=== PATIENT | female | born 1950 | race Caucasian/White ===

== ENCOUNTER 2017-03-09 07:51 | Day surgery (SDC) | payer MEDICARE ==
--- NOTE | 2017-03-09 06:47 | History and Physical Report ---
DATE: 03/09/2017. CHIEF COMPLAINT: This patient presents with a history of an intractable thoracic and lumbar radiculitis. Diagnostics show diffuse and multilevel spondylosis with multiple compression fractures from T6 through T12. HISTORY OF PRESENT ILLNESS: Multiple attempts at kyphoplasty with yielded minimal results. Due to the failure of all therapies, the patient presents today for an implanted spinal catheter infusion trial with hydromorphone to determine if the implantation of a permanent system can be of any value in pain control. PAST MEDICAL HISTORY: Hypertension, peripheral neuropathy, reflux esophagitis. PAST SURGICAL HISTORY: To be provided. MEDICATIONS ON ADMISSION: To be provided. ALLERGIES: None. SOCIAL HISTORY: Caffeine. FAMILY HISTORY: Coronary artery disease, hypertension. REVIEW OF SYSTEMS: The patient is appropriate and in no acute distress. The remainder of the systems review shows headaches, degenerative arthritis, depression, and difficulty sleeping. PHYSICAL EXAMINATION: General: Height and weight are not unknown. Vital Signs: Unavailable. HEENT: Within normal limits. Lungs: Clear. Heart: Regular rate and rhythm. Abdomen: Nontender. Musculoskeletal: Examination of the musculoskeletal system shows diffuse tenderness throughout the thoracic and lumbar spine. Range of motion produces pain moving into the rib margins as well as into the lower extremities, somewhat more right than left. Ambulation: Assistive device utilized. Neurologic: Cranial nerves are intact. IMPRESSION: THORACIC AND LUMBAR RADICULITIS, ICD-10 CODE M54.14, M54.16, AND M54.17. PLAN: The patient is here for an implanted spinal catheter infusion trial with hydromorphone to determine if the implantation of a permanent system can be of any value in pain control. An incision will be made and the catheter will be implanted into the supraspinous fascia and into the spinal space. The potential risks of spinal cord trauma, nerve root trauma, and spinal headache have been discussed and reviewed. An epidural blood patch will be performed in an attempt to provide a prophylaxis against the headache. All of the information from the loading machine adjuster has been provided. This carefully reviews all of the risks, side effects, and complications including those already identified above. The patient will be evaluated for a possible overnight stay, although discharge the same day could be considered. SUSY CORBETT D.O. Date & Time JOB NUMBER: [id number] cc: Luis Rojo
[~2017-03-09 07:51] MED LIST: ACETAMINOPHEN 1,000 MG/100 ML BTL IV ONE; CEFAZOLIN 2 Gram 2 GM/50 ML BAG IVPB ONE; FAMOTIDINE 20MG TABLET PO ONE; HYDROMORPHONE PF 2MG/ML AMP 0.004 MG in 0.9 % SODIUM CHLORIDE 10ML VIA 0.998 ML IV ONE; HYDROMORPHONE PF 2MG/ML AMP 2 MG in 0.9 % SODIUM CHLORIDE 500ML 499 ML IV ONE; MECLIZINE 25 MG TABLET PO ONE; METOCLOPRAMIDE 10 MG TABLET PO ONE
[2017-03-09] MEDS ORDERED: TEMAZEPAM 15 MG CAPSULE PO PRN ×2 (10:45)
[2017-03-09] MEDS ORDERED: HYDROCODONE/APAP 7.5/325MG TABLET PO PRN ×2 (10:45)
[2017-03-09] MEDS ORDERED: METOCLOPRAMIDE 10 MG TABLET PO PRN (10:45)
[2017-03-09] MEDS ORDERED: DIPHENHYDRAMINE HCL IV 50 MG/ML VIAL IVP PRN ×2 (10:45)
[2017-03-09] MEDS ORDERED: OXYCODONE/APAP 10MG-325MG TABLET PO PRN ×2 (10:45)
[2017-03-09] MEDS ORDERED: HYDROMORPHONE HCL 1 MG/ML CPJ IM PRN (10:45)
[2017-03-09] MEDS ORDERED: NALOXONE 0.4 MG/1 ML VIAL IVP PRN (10:45)
[2017-03-09] MEDS ORDERED: DIPHENHYDRAMINE HCL 25 MG CAPSULE PO PRN ×2 (10:45)
[2017-03-09] MEDS ORDERED: ACETAMINOPHEN 325 MG TAB PO PRN ×2 (10:45)
[2017-03-09] MEDS ORDERED: METOCLOPRAMIDE HCL 10 MG/2 ML VIAL IVP PRN (10:45)
[2017-03-09] MEDS ORDERED: SENNOSIDES/DOCUSATE SODIUM UD CAPSULE PO PRN ×2 (10:45)
[2017-03-09] MEDS ORDERED: RINGERS SOLUTION,LACTATED 1,000 ML IV SCH (10:45)
[2017-03-09] MEDS ORDERED: HYDROMORPHONE HCL 2 MG/ML VIAL IM PRN (10:45)
[2017-03-09] MEDS ORDERED: AL HYDROX/MAG HYDROX 30ML UD PO PRN (10:45)
[2017-03-09] MEDS ORDERED: RINGERS SOLUTION,LACTATED 1,000 ML IV PRN (12:03)
[2017-03-09] MEDS ORDERED: LIDOCAINE 1% W/EPI 1:200,000 MPF 30ML SQ ONE (15:07)
[2017-03-09] MEDS ORDERED: CEFAZOLIN 1G VIAL IM ONE (15:07)
[2017-03-09] MEDS ORDERED: BUPIVACAINE 0.5% W/EPI MPF 30 ML VIAL IVP ONE (15:07)
--- NOTE | 2017-03-09 15:41 | Operative Note - Ferro ---
DATE OF SURGERY: 03/09/17 PREOPERATIVE DIAGNOSES: THORACIC AND LUMBAR RADICULITIS, ICD-10 CODE = M54.14, M54.16, AND M54.17. OPERATION: 1. FLUOROSCOPICALLY-GUIDED ACCESS SPINAL SPACE AT L3/4. PLACEMENT OF THIN- WALLED SPINAL CATHETER T8. 2. DIAGNOSTIC MYELOGRAPHY WITH RADIOLOGIC SUPERVISION AND INTERPRETATION. 3. SPINAL OPIOID BOLUS HYDROMORPHONE 0.002 MG, SPINAL SPACE. 4. INCISION, SUBCUTANEOUS DISSECTION, AND ANCHORING OF SPINAL CATHETER TO SUPRASPINOUS FASCIA USING ANCHORING DEVICE AND NONABSORBABLE SUTURE. 5. INCISION, SUBCUTANEOUS DISSECTION, AND CREATION OF SUBCUTANEOUS POUCH AT LEFT POSTERIOR/SUPERIOR GLUTEAL MARGIN. 6. TUNNELING BETWEEN POUCHES, PLACEMENT OF EXTERNAL PORTION OF SPINAL CATHETER INTO POSTERIOR POUCH. CATHETER REVISED AND RESECTED WITH SECONDARY CATHETER COMPONENT BY WAY OF CONNECTOR. 7. TUNNELING OF SECONDARY CATHETER COMPONENT 6 CM SUPERIOR EXITING SKIN. 8. INTERFACE EXTERNAL CATHETER TO THE INFUSION PUMP SET TO DELIVER HYDROMORPHONE AT 0.04 MG A DAY. 9. CLOSURE OF MIDLINE INCISION, VICRYL FOR FASCIA AND RUNNING SUBCUTICULAR VICRYL FOR SKIN. CLOSURE OF LEFT POSTERIOR GLUTEAL MARGIN POUCH NYLON SUTURE. APPROPRIATE DRESSINGS PLACED COVERING CATHETER AND INCISIONS ALL UNDER STERILE DRESSING. 10. EPIDURAL BLOOD PATCH AT L4/5, 20 mL AUTOLOGOUS BLOOD DRAWN STERILE TECHNIQUE , LEFT ANTECUBITAL. DRESSINGS REINFORCED. PUMP CONFIRMED PROGRAM 0.04 MG A DAY. SURGEON: SUSY CORBETT D.O. ANESTHESIA: LOCAL SEDATION. ANESTHESIA PROVIDER: GLENYS SNIDER CRNA INDICATION: This patient presents with a history of intractable thoracic and lumbar radiculitis. Due to multiple compression fractures throughout the thoracic and lumbar spine, perhaps six in number. Due to the failure of all therapies, she is here for a spinal opioid infusion trial to determine if the implantation of a permanent system can be of any value in pain control. PROCEDURE: Intravenous line, vital sign monitoring, IV sedation. Prepped and draped sterile technique. Patient position prone. The spinal interspace at L3/4 was marked, skin infiltrated. Using a 15-gauge beveled with a long access in a paramedian approach, the spinal space was accessed. Access performed under AP and lateral imaging for safety. There were no paresthesias or pain on the part of the patient. A spinal catheter was advanced, positioned midline at T8. Diagnostic myelography is performed the resulting flow characteristics show smooth linear into the space. There were no kinks or obstructions noted. The skin above and below the needle infiltrated, incision made, and subcutaneous dissection was conducted to the supraspinous fascia. The needle was removed and the catheter was anchored to the supraspinous fascia with an anchoring device and nonabsorbable suture. At the left posterior gluteal margin, ultimately the site for the pump, skin infiltrated, incision made, and subcutaneous dissection was conducted to form a small pouch. A tunneling tool was then used to carry the spinal catheter into the posterior gluteal pouch. This catheter was then interfaced with the second catheter component by way of connector. The second catheter component was then tunneled superior exiting the skin 6 cm. The externalized catheter was then interfaced to an external infusion device, which was set to deliver Hydromorphone at 0.04 mg a day. The midline spinal catheter incision was closed Vicryl for fascia, running subcuticular Vicryl for skin. The posterior gluteal pouch was closed with nylon suture. At L4/5, which was one level below the dural puncture, skin infiltrated, and then an 18-gauge Tuohy needle with [id number] into the epidural space. Simultaneously, 20 mL of autologous blood drawn sterile technique from the left antecubital. This blood maintaining sterility was placed onto the field then the epidural blood patch was performed at this level with this blood. Needle removed. The dressings were reinforced. She was then transported to the Recovery Room stable , supine, pillow under head and knees. The infusion device at 0.04 mg a day. She was stable showing no side-effects from the procedure or the sedation. She will be kept flat for four hours, slowly elevated for one, and if stable considered dischargeable. Otherwise, she will be kept overnight for observation. DISCHARGE INSTRUCTIONS: 1. The sites will remain clean and dry. No showering or bathing in any way that would disrupt dressings. If it happens, contact the clinic. 2. Standard medications resumed including Levaquin, the antibiotic, 500 mg once a day for 14 days. 3. Spinal opioid side-effects including respiratory depression, nausea, vomiting , constipation, urinary retention, light headedness or rash have all been discussed and reviewed. All other instructions provided, numbers to contact, and problems given. She will then be evaluated in the office in 3-5 days for either an increase or redressing or reinforcing the dressings. cc: Dr. Medina JOB NUMBER:[id number] MTDD
[2017-03-09] MEDS ORDERED: MIDAZOLAM HCL 2MG/2ML VIAL IV ONE (15:46)
[2017-03-09] MEDS ORDERED: LIDOCAINE 2% MDV (20MG/ML) 20ML VIAL IV ONE (15:46)
[2017-03-09] MEDS ORDERED: PROPOFOL 10 MG/ML VIAL IV ONE (15:46)
[2017-03-09] MEDS ORDERED: FENTANYL PF 100MCG/2ML VIAL IV ONE (15:46)
[2017-03-09] MEDS ORDERED: CEFAZOLIN 2 Gram 2 GM/50 ML BAG IVPB SCH (17:20)
[2017-03-09] MEDS ORDERED: GABAPENTIN 300 MG CAPSULE PO SCH (22:00)
[2017-03-09] MEDS ORDERED: CITALOPRAM 20 MG TABLET PO SCH (22:00)
[2017-03-09] MEDS ORDERED: TRAZODONE 50 MG TABLET PO SCH (22:00)
[2017-03-10] MEDS ORDERED: METOPROLOL SUCC 25 MG TAB.ER PO SCH (10:00)
--- NOTE | 2017-03-10 10:52 | RADIOLOGY REPORT ---
EXAM: THORACOLUMBAR SPINE, ONE VIEW HISTORY: PAIN PUMP TRIAL. TECHNIQUE: A single AP view of the thoracic and upper lumbar portions of the spine were obtained. Comparison: None. FINDINGS: Post median sternotomy changes are identified. Bone cement is noted within a mid thoracic vertebral body which is compressed. There are degenerative changes scattered throughout the spine. An intraspinal catheter is in place. It is difficult to determine the level of entrance into the spinal canal. The tip of the intraspinal catheter is not well visualized though a radiopaque tip may be present at the inferior T8 level. Post surgical changes are noted in the left upper quadrant. IMPRESSION: INTRASPINAL CATHETER IN PLACE, DISCUSSED ABOVE. JOB NUMBER: [id number] MTDD
== END 2017-03-09 15:40 | disposition home or self-care (01) ==
LOC: SUR 07:51 → MEDSURG 11:23 → SUR 15:40
PROVIDERS: ATTEND Pain Medicine Interventional Pain Medicine
DX: M54.14 Radiculopathy, thoracic region (principal); M54.16 Radiculopathy, lumbar region; M54.17 Radiculopathy, lumbosacral region; I10 Essential (primary) hypertension
CPT/HCPCS: 62350; 00630; 72020; Q9967; J3010; J0690; J1170; J7040

== ENCOUNTER 2017-05-25 10:48 | Day surgery (SDC) | payer MEDICARE ==
--- NOTE | 2017-05-25 06:35 | History and Physical Report ---
DATE: 05/24/2017. CHIEF COMPLAINT AND HISTORY OF CHIEF COMPLAINT: This patient had a successful implanted spinal catheter infusion trial on March 09, 2017, with hydromorphone resulting in 75 to 80 percent pain control. At the conclusion of the trial, she fell and fractured her hip and had a hip replacement. Due to the failure of all other therapies, and after appropriate clearance from Orthopedics, she is here for implantation of a permanent system. PAST MEDICAL HISTORY: Peripheral neuropathy, hypertension, reflux, degenerative arthritis, depression, difficulty sleeping. SOCIAL HISTORY: Caffeine. FAMILY HISTORY: Coronary disease, hypertension. PAST SURGICAL HISTORY: Hip replacement. EMPLOYMENT STATUS: Retired. MEDICATIONS ON ADMISSION: To be provided. ALLERGIES: None. PHYSICAL EXAMINATION: General: Height and weight are not known. Vital Signs: Unavailable. HEENT: Within normal limits. Lungs: Clear. Heart: Regular rate and rhythm. Abdomen: Nontender. Musculoskeletal: Examination of the musculoskeletal system shows diffuse tenderness throughout the lumbar spine. Range of motion causes pain toward both hips and both legs. Ambulation: No assistive device utilized. Neurologic: Cranial nerves are intact. IMPRESSION: LUMBAR RADICULITIS, ICD-10 CODE M54.16 AND M54.17. PLAN: The patient is here for an implanted spinal infusion system with hydromorphone after a successful trial. The hip surgery delayed the procedure, but the patient is doing well and has passed all of the appropriate clearances. The procedure is scheduled for an overnight stay. An epidural blood patch will be performed as a prophylactic measure to prevent headaches. The potential risks, side effects, and complications have been carefully reviewed and discussed including spinal cord injury, paralysis, nerve root injury, dural puncture, and spinal headache. All of the appropriate information has been reviewed and discussed with the patient in detail. She has no questions and understands. SUSY CORBETT D.O. Date & Time JOB NUMBER: [id number] cc: Luis Rojo
[~2017-05-25 10:48] MED LIST changes: +HYDROMORPHONE HCL 0.008 GM in 0.9 % SODIUM CHLORIDE 10ML VIA 20 ML IV ONE; +HYDROMORPHONE HCL 0.016 GM in 0.9 % SODIUM CHLORIDE 10ML VIA 20 ML IV ONE; +HYDROMORPHONE HCL/PF 0.002 MG in 0.9 % SODIUM CHLORIDE 10ML VIA 0.998 ML IVP ONE; -HYDROMORPHONE PF 2MG/ML AMP 0.004 MG in 0.9 % SODIUM CHLORIDE 10ML VIA 0.998 ML IV ONE; -HYDROMORPHONE PF 2MG/ML AMP 2 MG in 0.9 % SODIUM CHLORIDE 500ML 499 ML IV ONE
[2017-05-25] MEDS ORDERED: TEMAZEPAM 15 MG CAPSULE PO PRN ×2 (14:03)
[2017-05-25] MEDS ORDERED: HYDROMORPHONE HCL 2 MG/ML VIAL IM PRN (14:03)
[2017-05-25] MEDS ORDERED: NALOXONE 0.4 MG/1 ML VIAL IVP PRN (14:03)
[2017-05-25] MEDS ORDERED: DIPHENHYDRAMINE HCL IV 50 MG/ML VIAL IVP PRN ×2 (14:03)
[2017-05-25] MEDS ORDERED: ACETAMINOPHEN 325 MG TAB PO PRN ×2 (14:03)
[2017-05-25] MEDS ORDERED: METOCLOPRAMIDE HCL 10 MG/2 ML VIAL IVP PRN (14:03)
[2017-05-25] MEDS ORDERED: AL HYDROX/MAG HYDROX 30ML UD PO PRN (14:03)
[2017-05-25] MEDS ORDERED: HYDROMORPHONE HCL 1 MG/ML CPJ IM PRN (14:03)
[2017-05-25] MEDS ORDERED: DIPHENHYDRAMINE HCL 25 MG CAPSULE PO PRN ×2 (14:03)
[2017-05-25] MEDS ORDERED: SENNOSIDES/DOCUSATE SODIUM UD CAPSULE PO PRN ×2 (14:03)
[2017-05-25] MEDS ORDERED: HYDROCODONE/APAP 7.5/325MG TABLET PO PRN ×2 (14:03)
[2017-05-25] MEDS ORDERED: METOCLOPRAMIDE 10 MG TABLET PO PRN (14:03)
[2017-05-25] MEDS ORDERED: RINGERS SOLUTION,LACTATED 1,000 ML IV SCH (14:03)
[2017-05-25] MEDS ORDERED: OXYCODONE/APAP 10MG-325MG TABLET PO PRN (14:03)
[2017-05-25] MEDS ORDERED: LIDOCAINE 1% W/EPI 1:200,000 MPF 30ML SQ ONE (15:00)
[2017-05-25] MEDS ORDERED: CEFAZOLIN 1G VIAL IM ONE (15:00)
[2017-05-25] MEDS ORDERED: BUPIVACAINE 0.5% W/EPI MPF 30 ML VIAL IVP ONE (15:00)
[2017-05-25] MEDS ORDERED: FENTANYL PF 100MCG/2ML VIAL IV ONE (16:18)
[2017-05-25] MEDS ORDERED: LIDOCAINE 2% MDV (20MG/ML) 20ML VIAL IV ONE (16:18)
[2017-05-25] MEDS ORDERED: PROPOFOL 10 MG/ML VIAL IV ONE (16:18)
[2017-05-25] MEDS ORDERED: MIDAZOLAM HCL 2MG/2ML VIAL IV ONE (16:18)
[2017-05-25] MEDS ORDERED: HYDROMORPHONE HCL 2 MG/ML VIAL IV ONE (16:18)
[2017-05-25] MEDS: OXYCODONE/APAP 10MG-325MG TABLET PO PRN ×2 (16:29→20:21)
[2017-05-25] MEDS: CEFAZOLIN 2 Gram 2 GM/50 ML BAG IVPB SCH (20:06)
[2017-05-25] MEDS ORDERED: TRAZODONE 50 MG TABLET PO SCH (22:00)
[2017-05-25] MEDS ORDERED: MIRTAZAPINE 15 MG TABLET PO SCH (22:00)
[2017-05-25] MEDS ORDERED: GABAPENTIN 300 MG CAPSULE PO SCH (22:00)
[2017-05-25] MEDS ORDERED: CITALOPRAM 20 MG TABLET PO SCH (22:00)
[2017-05-26] MEDS: OXYCODONE/APAP 10MG-325MG TABLET PO PRN ×2 (00:55→06:59)
[2017-05-26] MEDS: CEFAZOLIN 2 Gram 2 GM/50 ML BAG IVPB SCH (03:27)
[2017-05-26] MEDS ORDERED: METFORMIN 500 MG TABLET PO SCH (08:00)
[2017-05-26] MEDS ORDERED: METOPROLOL SUCC 25 MG TAB.ER PO SCH (10:00)
--- NOTE | 2017-05-26 16:24 | Operative Note - Ferro ---
DATE OF SURGERY: 05/25/17 PREOPERATIVE DIAGNOSIS: INTRACTABLE LUMBAR RADICULITIS, ICD-10 CODE = M54.16 AND M54.17. OPERATION: 1. FLUOROSCOPICALLY-GUIDED ACCESS SPINAL SPACE AT L3-4, PLACEMENT OF THIN- WALLED SPINAL CATHETER T8. 2. DIAGNOSTIC MYELOGRAPHY WITH RADIOLOGIC SUPERVISION AND INTERPRETATION. 3. SPINAL OPIOID BOLUS HYDROMORPHONE 0.001 MG SPINAL SPACE. 4. INCISION, SUBCUTANEOUS DISSECTION, AND ANCHORING OF SPINAL CATHETER TO SUPRASPINOUS FASCIA USING ANCHORING DEVICE AND NONABSORBABLE SUTURE. 5. INCISION, SUBCUTANEOUS DISSECTION, AND CREATION OF SUBCUTANEOUS POUCH AT RIGHT POSTERIOR GLUTEAL MARGIN FOR PLACEMENT OF PUMP IDENTIFIED MEDTRONIC 20 ML PROGRAMMABLE. 6. TUNNELING BETWEEN POUCHES. PLACEMENT OF EXTERNAL PORTION OF SPINAL CATHETER INTO PUMP POUCH. CATHETER RESECTED AND REVISED TO INTERFACE WITH SECOND CATHETER COMPONENT BY WAY OF CONNECTOR. SECOND CATHETER COMPONENT INTERFACED TO PUMP. 7. PLACEMENT OF PUMP INTO POUCH SECURING TO POSTERIOR FASCIA AT THREE POINTS NONABSORBABLE SUTURE THROUGH PUMP EYELETS. 8. CLOSURE OF INCISIONS VICRYL FOR FASCIA, RUNNING SUBCUTICULAR VICRYL FOR SKIN. DERMABOND CLOSURE. 9. EPIDURAL BLOOD PATCH AT L4-5, 20 ML AUTOLOGOUS BLOOD DRAWN STERILE TECHNIQUE LEFT ANTECUBITAL. 10. PROGRAMMING OF PUMP TO DELIVER BY CONTINUOUS INFUSION HYDROMORPHONE AT 0.04 MG A DAY. SURGEON: SUSY CORBETT D.O. ANESTHESIA: LOCAL SEDATION. ANESTHESIA PROVIDER: GLENYS SNIDER CRNA INDICATION: This patient presents with a history of intractable lumbar radiculitis. Due to the failure of all therapies and the successful implanted catheter trial, she is here for implanted of a permanent system. PROCEDURE: Intravenous line, vital sign monitoring, IV sedation, prepped and draped in sterile technique. Under imaging with the patient prone, the spinal interspace at L3-4 marked, infiltrated. A 20-gauge spinal needle paramedian approach beveled with a long axis inserted into the spinal space. With CSF flow , a thin-walled spinal catheter was advanced, positioned T8. Diagnostic myelography with radiologic supervision and interpretation showed smooth linear flow of contrast throughout the spinal space. A bolus of Hydromorphone 0.001 mg given into the spinal space. The skin above and below the needle infiltrated, incision made, and subcutaneous dissection was conducted to the supraspinous fascia. The needle was remove and the catheter was anchored to the supraspinous fascia using an anchoring device and nonabsorbable suture. At the right posterior gluteal margin. a site picked by the patient for the pump, skin infiltrated, incision made, and subcutaneous dissection was conducted to form a pouch of suitable size and depth for the pump itself identified as a Medtronic 20 mL Programmable. The catheter was then tunneled into the pump pouch and then resected and interfaced with a second catheter component by way of a connector. This revised catheter component was then interfaced to the pump. The pump was placed into the pouch and secured to the posterior fascia with nonabsorbable suture at three points pump eyelets. The catheter was then placed in the pouch with the pump in its own pouch. Both incisions were closed Vicryl for fascia, running subcuticular Vicryl for skin. A Dermabond closure system was used to approximate the edges of the wound. At L4-5, which is one level below the dural puncture, skin infiltrated then an 18-gauge Tuohy needle with loss-of- resistance was used to gain entry into the epidural space. Simultaneously, 20 mL of autologous blood drawn sterile technique from the left antecubital. This blood placed onto the field maintaining sterility. An epidural blood patch was then performed at this level with this blood. Needle removed. The dressing was reinforced and she was turned supine, transferred to the Recovery Room flat, pillow under head and knees, stable showing no side-effects from the procedure or the sedation. She will stay flat for four hours, slowly elevated for one, and then be evaluated. Because of age and the fact that she lives at home and there is no supervision or ability to monitor, she will stay overnight and be discharged in the morning. DISCHARGE INSTRUCTIONS: 1. The sites will remain clean and dry although the Dermabond will allow showering. 2. Standard medications resumed including Levaquin, the antibiotic, 500 mg once a day for 14 days. 3. Spinal opioid side-effects including; respiratory depression, nausea, vomiting, constipation, urinary retention, lightheadedness or rash have all been discussed and reviewed. If it happens, contact the clinic. All other instructions provided, numbers to contact, problems given. She will be evaluated in the office in 5-7 days. The office will contact to set the appointment. cc: Dr. Manuel Medina JOB NUMBER: [id number] [facility]
--- NOTE | 2017-05-26 19:51 | RADIOLOGY REPORT ---
EXAM: SPINE, 1 VIEW HISTORY: PAIN PUMP IMPLANT. COMPARISON: None. FINDINGS: Mild dextroconvex scoliosis of the thoracolumbar spine. Osteopenia with multilevel degenerative disc disease. Pain pump catheter extends cephalad to the mid T8 level. IMPRESSION: PAIN PUMP CATHETER TIP EXTENDS CEPHALAD TO THE MID T8 LEVEL. JOB NUMBER: [id number] MTDD
== END 2017-05-26 09:15 | disposition home or self-care (01) ==
LOC: SUR 10:48 → MEDSURG 14:40 → SUR 05-26 09:15
PROVIDERS: ATTEND Pain Medicine Interventional Pain Medicine
DX: M54.16 Radiculopathy, lumbar region (principal); M54.17 Radiculopathy, lumbosacral region; G62.9 Polyneuropathy, unspecified; I10 Essential (primary) hypertension; I25.10 Atherosclerotic heart disease of native coronary artery without angina pectoris; E11.9 Type 2 diabetes mellitus without complications; Z79.84 Long term (current) use of oral hypoglycemic drugs; I73.9 Peripheral vascular disease, unspecified; C91.90 Lymphoid leukemia, unspecified not having achieved remission
CPT/HCPCS: 62362; 00300; 62367; 72020; Q9967; J1170 ×2; J3010; J0690 ×2; J7120